=== PATIENT | male | born 1990 | race Two or more races ===

== ENCOUNTER 2019-11-11 00:43 | Emergency (ER) | payer OTHER ==
[~2019-11-11] VITALS: Ht 172.7 cm; Wt 104.3 kg
[2019-11-11 01:11] LABS: BASO # 0.1 x10^3/uL (0.0-0.2); BASO % 1 % (0-3); EOS % 0 % (0-3); HEMATOCRIT 44.3 % (39.0-53.0); HEMOGLOBIN 15.3 g/dL (13.0-17.5); LYMPH # 1.4 x10^3/uL (1.0-4.8); LYMPH % 10 % (24-48); MEAN CORPUSCULAR HEMOGLOBIN 30 pg (25-35); MEAN CORPUSCULAR HGB CONC 35 g/dL (31-37); MEAN CORPUSCULAR VOLUME 88 fL (79-100); MONO # 1.2 x10^3/uL (0.0-1.1); MONO % 8 % (0-9); NEUT % 82 % (31-73); PLATELET COUNT 181 x10^3/uL (140-400); RED BLOOD COUNT 5.05 x10^6/uL (4.30-5.70); RED CELL DISTRIBUTION WIDTH 12.9 % (11.5-14.5); WHITE BLOOD COUNT 14.7 x10^3/uL (4.0-11.0)
[2019-11-11 01:23] LABS: CALCIUM 8.5 mg/dL (8.5-10.1); CREATININE 1.3 mg/dL (0.7-1.3); GFR 65.7; POTASSIUM 3.4 mmol/L (3.5-5.1)
[2019-11-11 01:28] LABS: ALBUMIN 3.5 g/dL (3.4-5.0); ALBUMIN/GLOBULIN RATIO 0.7 (1.0-1.7); TOTAL BILIRUBIN 0.6 mg/dL (0.2-1.0); TOTAL PROTEIN 8.6 g/dL (6.4-8.2)
[2019-11-11] MEDS: IOHEXOL 300 MG/ML 100ML VIAL. IV ONE (01:51)
[2019-11-11] MEDS ORDERED: CONTRAST GIVEN. MC PRN (02:00)
[2019-11-11] MEDS: cefTRIAXone IV Push 1 GM VIAL. IVP ONE (02:06)
[2019-11-11] MEDS: IV NORMAL SALINE 1000ML BAG 1,000 ML IV ONE (02:06)
[2019-11-11] MEDS: fentaNYL PF VIAL 100 MCG/2 ML VIAL IVP ONE (02:07)
[2019-11-11] MEDS: methylPREDNISolone SOD SUCC PF 125 MG/2 ML VIAL. IV ONE (02:07)
[2019-11-11] MEDS: ONDANSETRON PF 4 MG/2 ML VIAL. IV ONE (02:07)
--- NOTE | 2019-11-11 02:10 | RAD ---
CT SOFT TISSUE NECK W/CONTRAST DATE: 11/11/2019 12:52 AM INDICATION: TECHNIQUE: Axial computed tomography of the neck with intravenous contrast according to the standard neck protocol. 70 cc of Omnipaque 300 was administered intravenously. One or more of the following dose reduction techniques were utilized: Automated exposure control (AEC), Adjustment of mA and/or kV according to patient size, Use of iterative reconstruction technique such as ASiR, CT scan done according to ALARA and image gently/image wisely COMPARISON: None. FINDINGS: Enlargement of the palatine tonsils with narrowing of the oropharynx. No abscess. No retropharyngeal collection. Bilateral cervical lymphadenopathy. The parotid, submandibular, and thyroid glands are normal. The muscles of the neck are normal. Vessels of the neck demonstrate normal course, caliber, and enhancement. The visualized aerodigestive tract is normal. The visualized posterior fossa and brain is unremarkable. The visualized orbits and paranasal sinuses are normal. The cervical spine is normal. The visualized lung apices are clear. IMPRESSION: Enlarged palatine tonsils with narrowing of the oropharynx. No abscess. No retropharyngeal collection. Bilateral cervical lymphadenopathy, likely reactive. Electronically signed by: Chintan Hall MD (11/11/2019 2:07 AM) [facility]
[2019-11-11] MEDS ORDERED: METH4TAB2 PO (02:34)
--- NOTE | 2019-11-11 02:34 | PHYS DOC ---
Past Medical History Past Medical History: No Pertinent History Past Surgical History: No Surgical History Alcohol Use: None Drug Use: None Adult General Chief Complaint Chief Complaint: SORE THROAT HPI HPI Patient is a 29-year-old male who presents with complaint of a few day history of sore throat and ear pain. Patient was seen at another facility yesterday and was diagnosed with bilateral otitis media and viral pharyngitis. Patient states that the sore throat has gotten a lot worse and states that he is having d ifficulty with swallowing. He denies any chest pain or shortness breath. Patient is not sure whether or not he has been running a fever.[] Review of Systems Review of Systems Constitutional: Denies chills [] HENT: Complains of sore throat [] Respiratory: Denies cough or shortness of breath [] Cardiovascular: No additional information not addressed in HPI [] GI: Denies abdominal pain [] Integument: Denies rash or skin lesions [] Neurologic: Denies headache, focal weakness or sensory changes [] All other systems were reviewed and found to be within normal limits, except as documented in this note. Current Medications Current Medications Current Medications Medications (Trade) Dose Ordered Sig/Gabriela Start Time Stop Time Status Last Admin Dose Admin Ceftriaxone Sodium (Rocephin) 1 gm 1X ONCE 11/11/19 01:00 11/11/19 01:05 DC 11/11/19 02:06 1 GM Fentanyl Citrate (Fentanyl 2ml Vial) 50 mcg 1X ONCE 11/11/19 01:15 11/11/19 01:16 DC 11/11/19 02:07 50 MCG Info (CONTRAST GIVEN -- Rx MONITORING) 1 each PRN DAILY PRN 11/11/19 02:00 11/13/19 01:59 Iohexol (Omnipaque 300 Mg/ml) 70 ml 1X ONCE 11/11/19 02:00 11/11/19 02:01 DC 11/11/19 01:51 70 ML Methylprednisolone Sodium Succinate (SOLU-Medrol 125MG VIAL) 125 mg 1X ONCE 11/11/19 01:15 11/11/19 01:16 DC 11/11/19 02:07 125 MG Ondansetron HCl (Zofran) 4 mg 1X ONCE 11/11/19 01:15 11/11/19 01:16 DC 11/11/19 02:07 4 MG Sodium Chloride 1,000 ml @ 1,000 mls/hr 1X ONCE 11/11/19 01:00 11/11/19 01:59 DC 11/11/19 02:06 1,000 MLS/HR Allergies Allergies Allergies Coded Allergies Type Severity Reaction Last Updated Verified No Known Drug Allergies 12/15/14 No Physical Exam Physical Exam Constitutional: Well developed, well nourished, no acute distress, non-toxic appearance. [] HENT: Normocephalic, atraumatic, bilateral external ears normal, oropharynx moist, tonsils are swollen unevenly with left tonsil significantly larger. Patient with strong gag reflex, causing vomiting after utilizing tongue depressor. [] Eyes: PERRLA, EOMI, conjunctiva normal, no discharge. [] Neck: Normal range of motion, no tenderness, supple, with cervical lymphadenopathy. [] Cardiovascular: Regular rate and rhythm[] Lungs & Thorax: Bilateral breath sounds clear to auscultation [] Abdomen: Bowel sounds normal, soft, no tenderness. [] Skin: Warm, dry, no erythema, no rash. [] Extremities: No tenderness, no cyanosis, no clubbing, ROM intact, no edema. [] Neurologic: Alert and oriented X 3, no focal deficits noted. [] Current Patient Data Vital Signs Vital Signs Date Time Temp Pulse Resp B/P (MAP) Pulse Ox O2 Delivery O2 Flow Rate FiO2 11/11/19 01:00 100.6 128 26 145/74 (97) 98 Room Air 100.6 Lab Values Laboratory Tests Test 11/11/19 01:00 White Blood Count 14.7 x10^3/uL (4.0-11.0) H Red Blood Count 5.05 x10^6/uL (4.30-5.70) Hemoglobin 15.3 g/dL (13.0-17.5) Hematocrit 44.3 % (39.0-53.0) Mean Corpuscular Volume 88 fL (79-100) Mean Corpuscular Hemoglobin 30 pg (25-35) Mean Corpuscular Hemoglobin Concent 35 g/dL (31-37) Red Cell Distribution Width 12.9 % (11.5-14.5) Platelet Count 181 x10^3/uL (140-400) Neutrophils (%) (Auto) 82 % (31-73) H Lymphocytes (%) (Auto) 10 % (24-48) L Monocytes (%) (Auto) 8 % (0-9) Eosinophils (%) (Auto) 0 % (0-3) Basophils (%) (Auto) 1 % (0-3) Neutrophils # (Auto) 12.0 x10^3/uL (1.8-7.7) H Lymphocytes # (Auto) 1.4 x10^3/uL (1.0-4.8) Monocytes # (Auto) 1.2 x10^3/uL (0.0-1.1) H Eosinophils # (Auto) 0.0 x10^3/uL (0.0-0.7) Basophils # (Auto) 0.1 x10^3/uL (0.0-0.2) Sodium Level 136 mmol/L (136-145) Potassium Level 3.4 mmol/L (3.5-5.1) L Chloride Level 98 mmol/L (98-107) Carbon Dioxide Level 26 mmol/L (21-32) Anion Gap 12 (6-14) Blood Urea Nitrogen 23 mg/dL (8-26) Creatinine 1.3 mg/dL (0.7-1.3) Estimated GFR (Cockcroft-Gault) 65.7 BUN/Creatinine Ratio 18 (6-20) Glucose Level 125 mg/dL (70-99) H Calcium Level 8.5 mg/dL (8.5-10.1) Total Bilirubin 0.6 mg/dL (0.2-1.0) Aspartate Amino Transferase (AST) 32 U/L (15-37) Alanine Aminotransferase (ALT) 35 U/L (16-63) Alkaline Phosphatase 63 U/L (46-116) Total Protein 8.6 g/dL (6.4-8.2) H Albumin 3.5 g/dL (3.4-5.0) Albumin/Globulin Ratio 0.7 (1.0-1.7) L Laboratory Tests 11/11/19 01:00 Laboratory Tests 11/11/19 01:00 EKG EKG [] Radiology/Procedures Radiology/Procedures [] Impressions: PROCEDURE: CT SOFT TISSUE NECK W/CONTRAST CT SOFT TISSUE NECK W/CONTRAST DATE: 11/11/2019 12:52 AM INDICATION: TECHNIQUE: Axial computed tomography of the neck with intravenous contrast according to the standard neck protocol. 70 cc of Omnipaque 300 was administered intravenously. One or more of the following dose reduction techniques were utilized: Automated exposure control (AEC), Adjustment of mA and/or kV according to patient size, Use of iterative reconstruction technique such as ASiR, CT scan done according to ALARA and image gently/image wisely COMPARISON: None. FINDINGS: Enlargement of the palatine tonsils with narrowing of the oropharynx. No abscess. No retropharyngeal collection. Bilateral cervical lymphadenopathy. The parotid, submandibular, and thyroid glands are normal. The muscles of the neck are normal. Vessels of the neck demonstrate normal course, caliber, and enhancement. The visualized aerodigestive tract is normal. The visualized posterior fossa and brain is unremarkable. The visualized orbits and paranasal sinuses are normal. The cervical spine is normal. The visualized lung apices are clear. IMPRESSION: Enlarged palatine tonsils with narrowing of the oropharynx. No abscess. No retropharyngeal collection. Bilateral cervical lymphadenopathy, likely reactive. Electronically signed by: Chintan Hall MD (11/11/2019 2:07 AM) [facility] Course & Med Decision Making Course & Med Decision Making Pertinent Labs and Imaging studies reviewed. (See chart for details) [] Dragon Disclaimer Dragon Disclaimer This electronic medical record was generated, in whole or in part, using a voice recognition dictation system. Departure Departure Impression: Primary Impression: Tonsillitis Disposition: 01 HOME, SELF-CARE Condition: STABLE Referrals: ROZ MARCUS DO (PCP) Patient Instructions: Tonsillitis Scripts Hydrocodone Bit/Acetaminophen (HYDROCODONE-APAP 7.5-325/15 SOLN ) 15 Ml Solution 10 ML PO PRN Q6HRS PRN for PAIN, #120 ML 0 Refills Prov: WILBERTO ROSE Jr. DO 11/11/19 Methylprednisolone (MEDROL) 4 Mg Tab.ds.pk 1 PKG PO UD, #1 PKG Prov: WILBERTO ROSE Jr. DO 11/11/19 WILBERTO ROSE Jr. DO Nov 11, 2019 02:34
[2019-11-11 02:38] VITALS: BP 128/64
[2019-11-11] MEDS ORDERED: HYDR15SO6 PO (02:50)
[2019-11-11] MEDS: KETOROLAC 30 MG/ML VIAL. IVP ONE (02:57)
== END 2019-11-11 03:08 | disposition home or self-care (01) ==
LOC: ER 00:43
DX: J03.90 Acute tonsillitis, unspecified (principal); H66.93 Otitis media, unspecified, bilateral; R11.10 Vomiting, unspecified; R59.0 Localized enlarged lymph nodes
CPT/HCPCS: 36415; 70491; 80053; 85025; 96361; 96374; 96375; 99285; J0696; J1885; J2405; J2930; J3010; J7030; Q9967